=== PATIENT | female | born 1965 | race Caucasian/White ===

== ENCOUNTER → 2016-10-12 | Outpatient (CLI) | payer MEDICARE, OTHER ==
--- NOTE | 2016-10-12 11:00 | MR ---
EXAMINATION TYPE: MR lumbar spine wo con DATE OF EXAM: 10/12/2016 10:30 AM COMPARISON: 01/29/2015 HISTORY: lsp radiculopathy, urinary incontinence, pain and difficulty walking TECHNIQUE: T1 and T2 axial and sagittal images of the lumbar spine are submitted. FINDINGS: There is no abnormal signal seen within the visualized spinal cord or paraspinal soft tissu es. There is loss of disc signal and space at all levels. There is a slight anterolisthesis of 2 mm of L4 on L5. Schmorl's nodes are seen at multiple levels involving the thoracolumbar junction. Benign-appe aring simple renal cysts are also noted. At T12-L1 there is a focal left paracentral small disc herniation. There is effacement of thecal sac but no spinal cord contact. Bilateral nerve root sleeve diverticulum seen. At L1-2 there is left paracentral and lateral disc herniation. There is thecal sac compression and le ft-sided foraminal encroachment. No spinal cord contact. Facet arthropathy noted. Borderline canal st enosis. At L2-3 there is severe degenerative disc disease with disc bulging greater paracentrally and lateral ly the right with mild canal stenosis. Hypertrophic change of the facets and ligamentum flavum contri bute to the canal stenosis. Moderate right foraminal encroachment and mild left foraminal encroachmen t At L3-4 there is circumferential disc bulging with facet arthropathy. There is mild AP canal stenosis and mild bilateral neural foraminal encroachment greater on the right At L4-5 there is broad-based central disc herniation with moderate canal stenosis and effacement of t hecal sac. Could not exclude a small fragment within the left lateral recess. There is severe facet a rthropathy and ligamentum flavum hypertrophy with moderate bilateral foraminal encroachment. At L5-S1 there is severe facet arthropathy but no canal stenosis or disc herniation. Mild bilateral f oraminal encroachment. IMPRESSION: 1. Multilevel disc herniation and canal stenosis appears similar to the previous exam 2. Multilevel foraminal encroachment and facet arthropathy EXAMINATION TYPE: MR tspine/lspine wo con DATE OF EXAM: 10/12/2016 10:30 AM COMPARISON: NONE HISTORY: lsp radiculopathy, urinary incontinence, pain and difficulty walking Standard multiplanar, multisequence MRI departmental protocol Multiplanar, multisequence images of the thoracic were acquired. Diffusion weighted imaging was perfo rmed. FINDINGS: Exam severely limited by motion artifact. There is a scoliosis the spine. Multilevel Schmor l nodes are seen and there is multilevel moderate to severe degenerative disc disease. No acute compr ession deformities. No bone marrow edema. Artifact from surgical hardware involving the lower cervical spine noted. At T2-T3 there is a right paracentral disc bulge or small protrusion. No spinal cord contact. At T3-T4 there is a small central disc herniation which abuts the anterior margin the spinal cord. At T7-T8 there is a right paracentral disc herniation. No spinal cord contact. Neural foramina.. Multilevel facet arthropathy noted. Again noted at T12-L1 is a left paracentral disc herniation and bilateral nerve root sleeve diverticu lum. No spinal cord contact. Simple appearing renal cysts are noted. Hemangioma of the T7 and T10 vertebral bodies. IMPRESSION: 1. Multilevel degenerative disc disease with multilevel disc herniations as discussed above. Most not able at T3-T4 with a central herniation which abuts the anterior margin the spinal cord. No diagnosti c evidence of myelitis. 2. 3 cm left adrenal mass. Appears stable from the CT scan of 2012.
== END | disposition home or self-care (01) ==
LOC: RADMRIMAIN 09:26
PROVIDERS: ATTEND Psychiatry & Neurology Neurology
DX: M54.16 Radiculopathy, lumbar region (principal); R32 Unspecified urinary incontinence; M48.06 Spinal stenosis, lumbar region; M51.24 Other intervertebral disc displacement, thoracic region; M46.90 Unspecified inflammatory spondylopathy, site unspecified
CPT/HCPCS: 72146; 72148

== ENCOUNTER → 2018-06-16 | Outpatient (CLI) | payer MEDICARE, OTHER ==
--- NOTE | 2018-06-16 15:16 | CT ---
EXAMINATION TYPE: CT thoracic spine w con DATE OF EXAM: 06/16/2018 COMPARISON: None HISTORY: Hematoma, recent pain stimulator implant placement CT DLP: 1361.31 mGycm Automated exposure control for dose reduction was used. CONTRAST: Performed with IV Contrast, patient injected with 100 mL of Isovue 300. FINDINGS: Stimulator leads are present within the posterior spinal canal at T8-T10. Upper thoracic spinal canal appears within normal limits. Stimulator leads are in the posterior poste rior left lateral spinal canal. No spinal canal stenosis is present. No suspicious collection is evident. No abnormal enhancement is evident. No suspicious changes to sug gest abscess is evident. There is a 7.3 cm cyst on the lateral inferior pole right kidney measuring 16 Hounsfield units. IMPRESSION: 1. STIMULATOR LEADS AT THE LOWER THORACIC SPINE. 2. NO SUSPICIOUS CHANGES TO SUGGEST ACUTE INFECTION RADIOGRAPHICALLY. 3. LARGE RIGHT INFERIOR POLE RENAL CYST.
--- NOTE | 2018-06-16 15:27 | CT ---
EXAMINATION TYPE: CT lumbar spine w con DATE OF EXAM: 06/16/2018 COMPARISON: None HISTORY: Hematoma, recent pain stimulator implant placement CT DLP: 757.83 mGycm CONTRAST: CT scan of the lumbar is performed with IV Contrast, patient injected with mL of Isovue 300. TECHNIQUE: CT of the lumbar spine is performed on a spiral scan at 3 mm thick sections. Reconstructed images are performed in the coronal and sagittal planes. FINDINGS: No suspicious hematoma or abscess formation is evident. Stimulator leads are evident extend ing into the spinal canal heading superiorly. See CT thoracic spine for additional evaluation. T12-L1: There is narrowing of the disc height. No spinal canal stenosis or neural foraminal stenosis is present. L1-L2: Left paracentral endplate spurring has moderate anterior thecal sac compression. No AP spinal canal stenosis or neural foraminal stenosis is present. L2-L3: There is loss of disc height is level. Vacuum disc phenomenon is present. No AP spinal canal s tenosis or neural foraminal stenosis is present. L3-L4: Broad-based disc bulge is present with anterior thecal sac flattening. No spinal canal stenosi s is present. Some moderate right foraminal narrowing due to disc bulging may be present. L4-L5: There is a grade 1 spondylolisthesis of L4 anterior on L5. There is moderate disc uncovering w ith anterior thecal sac flattening. Facet hypertrophy greater on the right has posterior lateral thec al sac compression. L5-S1: No focal disc herniation or significant disc bulge is evident. No spinal canal stenosis or n eural foraminal stenosis is present IMPRESSION: Left paracentral endplate spurring L1-L2 with moderate anterior thecal sac compression. 2. No suspicious changes for abscess or hematoma identified. 3. Multilevel degenerative disc changes greatest L2-3 also present L1-2
== END ==
LOC: RADCTMAIN 13:29
PROVIDERS: ATTEND Psychiatry & Neurology Neurology
DX: M51.36 Other intervertebral disc degeneration, lumbar region (principal); M54.6 Pain in thoracic spine
CPT/HCPCS: 72129; 72132

== ENCOUNTER 2022-09-30 10:45 | Observation (INO) | payer MEDICARE, OTHER ==
[2022-09-30] MEDS ORDERED: NALOXONE 0.4 MG/ML 1 ML VIAL IV PRN (10:53)
[2022-09-30] MEDS ORDERED: ONDANSETRON 4 MG/2 ML VIAL IVP PRN (10:53)
[2022-09-30] MEDS: MORPHINE SULFATE 2 MG/ML SYRINGE IV PRN ×2 (11:02→20:34)
[2022-09-30] MEDS: SODIUM CHLORIDE 0.9% 1,000 ML IV SCH ×2 (11:03→23:26)
--- NOTE | 2022-09-30 11:08 | ED ---
General Adult HPI - General Chief complaint: Abdominal Pain Stated complaint: Abd Pain Time Seen by Provider: 09/30/22 10:48 Source: patient, EMS, RN notes reviewed, old records reviewed Mode of arrival: EMS Limitations: no limitations - History of Present Illness Initial comments: Patient is a 57-year-old female with past medical history remarkable for fibromyalgia, hypertension, kidney stones who presents emergency Department complaining of right-sided flank pain. Patient was transferred from [facility] after being worked up for kidney stone. They did find a large 8 mm right-sided kidney stone in the ureter that appears to be obstructing as the patient does have hydronephrosis in the right kidney as well as calyx rupture into a chronic renal cyst on the right. No retroperitoneal rupture. Patient's laboratory studies from the outpatient facility revealed relatively normal kidney function with a slight increase in creatinine to 1.2. Urinalysis shows trace blood. No concern for infected stone at this time. CT imaging was obtained to evaluate the patient's stone and was brought here. Above the reuploaded. Patient was transferred for evaluation by urology and possible stent. I did discuss the case Dr. Baptiste prior to transfer and he was in agreement with the transfer. Requested to be notified when the patient arrives. Family states she has some mild pain and is requesting some additional morphine which will be provided. She otherwise has no other new acute complaints. She has been nothing by mouth since the other hospital. We will continue nothing by mouth at this time. - Related Data Home Medications Medication Instructions Recorded Confirmed Loratadine [Claritin] 10 mg PO DAILY 01/13/15 09/30/22 Acetaminophen [Tylenol Extra 1,000 mg PO Q4H PRN 09/30/22 09/30/22 Strength] Albuterol Sulfate [Albuterol 2 puff PO RT-Q6H PRN 09/30/22 09/30/22 Sulfate Hfa] Amberen 2 cap PO DAILY 09/30/22 09/30/22 Baclofen 10 mg PO TID PRN 09/30/22 09/30/22 Cholecalciferol [Vitamin D3 (25 25 mcg PO DAILY 09/30/22 09/30/22 Mcg = 1000 Iu)] Cyanocobalamin (Vitamin B-12) 5,000 mcg PO DAILY 09/30/22 09/30/22 [Vitamin B-12] DULoxetine HCL [Cymbalta] 60 mg PO DAILY 09/30/22 09/30/22 Fluticasone Nasal [place] [Flonase 1 spray EA NOSTRIL BID 09/30/22 09/30/22 Nasal [place]] Losartan [Cozaar] 25 mg PO HS 09/30/22 09/30/22 Rosuvastatin Calcium [Crestor] 40 mg PO HS 09/30/22 09/30/22 amLODIPine [Norvasc] 10 mg PO HS 09/30/22 09/30/22 buPROPion [Wellbutrin] 75 mg PO DAILY 09/30/22 09/30/22 Previous Rx's Medication Instructions Recorded Fesoterodine Fumarate [Toviaz] 4 mg PO DAILY #30 tab 09/30/22 Tamsulosin [Flomax] 0.4 mg PO DAILY #30 cap 09/30/22 Allergies Allergy/AdvReac Type Severity Reaction Status Date / Time hydromorphone [From Dilaudid] AdvReac Vomiting Verified 09/30/22 11:56 Review of Systems ROS Statement: Those systems with pertinent positive or pertinent negative responses have been documented in the HPI. Review of Systems: CONST: Denies fever EYES: Denies blurry vision ENT: Denies nasal congestion C/V: Denies Chest pain RESP: Denies shortness of breath GI: Endorses right flank pain. : Denies dysuria SKIN: Denies rash. MSK: Denies joint pain. NEURO: Denies headache ROS Other: All systems not noted in ROS Statement are negative. Past Medical History Past Medical History: COPD, Fibromyalgia, Hyperlipidemia, Hypertension, Osteoarthritis (OA) Additional Past Medical History / Comment(s): varicose veins, cyst rt kidney, hx kidney stones History of Any Multi-Drug Resistant Organisms: MRSA Date of last positivie culture/infection: 04/05/2022 MDRO Source:: face Past Surgical History: Back Surgery Additional Past Surgical History / Comment(s): essure procedure Past Anesthesia/Blood Transfusion Reactions: No Reported Reaction Past Psychological History: Depression Smoking Status: Current every day smoker Past Alcohol Use History: Rare Past Drug Use History: None Reported - Past Family History Mother Family Medical History: Deep Vein Thrombosis (DVT), Pulmonary Embolus General Exam - General Exam Comments Initial Comments: General: Appears in mild distress secondary to pain. HEAD: Normal with no signs of head trauma. EYES: PERRLA, EOMI, conjunctiva normal, no discharge. ENT: Hearing grossly intact, normal oropharynx. RESPIRATORY: Clear breath sounds bilaterally. No wheezes, rales, or rhonchi. C/V: Regular rate and rhythm. S1 and S2 auscultated, no edema, peripheral pulses 2+ and intact throughout ABD: Abdomen is soft, nondistended. Tender to palpation over the right flank. Minimal CVA tenderness to percussion. No guarding. No peritoneal signs. No rebound tenderness. EXT: Normal range of motion, no obvious deformity SKIN: No rashes or lesions observed on exposed skin. NEURO: Alert and oriented 4. Limitations: no limitations Course Vital Signs 09/30/22 10:56 Temperature 98.6 F Pulse Rate 76 Respiratory 18 Rate Blood Pressure 117/65 O2 Sat by Pulse 95 Oximetry Medical Decision Making - Medical Decision Making Was pt. sent in by a medical professional or institution (, PA, BOILER HOUSE MECHANIC, urgent care, hospital, or fdc...) When possible be specific @ -Transferred from [facility] for urology evaluation over concern for large right-sided obstructing stone with hydronephrosis. Did you speak to anyone other than the patient for history (EMS, parent, family, police, friend...)? What history was obtained from this source @ -Yes, I spoke with the transferring physician Dr. Garsia who provided the patient's history. Did you review nursing and triage notes (agree or disagree)? Why? @ -I reviewed and agree with nursing and triage notes Were old charts reviewed (outside hosp., previous admission, EMS record, old EKG, old radiological studies, urgent care reports/EKG's, fdc records)? Report findings @ -Outside hospital records from [place] were reviewed including CT results. Imaging Disc was uploaded into our system. Differential Diagnosis (chest pain, altered mental status, abdominal pain women, abdominal pain men, vaginal bleeding, weakness, fever, dyspnea, syncope, headache, dizziness, GI bleed, back pain, seizure, CVA, palpatations, mental health, musculoskeletal)? @ -Right-sided hydronephrosis, right sided hilar nephritis, UTI, ureterolithiasis, obstructing kidney stone. This list is not all inclusive. EKG interpreted by me (3pts min.). @ -None done X-rays interpreted by me (1pt min.). @ -None done CT interpreted by me (1pt min.). @ -Imaging uploaded from outside facility. U/S interpreted by me (1pt. min.). @ -None done What testing was considered but not performed or refused? (CT, X-rays, U/S, labs)? Why? @ -None What meds were considered but not given or refused? Why? @ -None Did you discuss the management of the patient with other professionals (professionals i.e. DrAbebe, PA, [employer]ILER HOUSE MECHANIC, lab, RT, psych nurse, professor of social work, press operator automatic, teacher, president and chief commercial officer, nurse case manager)? Give summary @ -Yes, Dr. Veliz of urology who accepted the transfer as well as the admission under his service. Declines additional laboratory studies his lungs the patient has labs. Recommended we uploaded imaging into our system which is being done. Otherwise accepted patient for admission. Patient was made nothing by mouth at his request. Was smoking cessation discussed for >3mins.? @ -No Was critical care preformed (if so, how long)? @ -No Were there social determinants of health that impacted care today? How? (Homelessness, low income, unemployed, alcoholism, drug addiction, transportation, low edu. Level, literacy, decrease access to med. care, residential, rehab)? @ -No Was there de-escalation of care discussed even if they declined (Discuss DNR or withdrawal of care, Hospice)? DNR status @ -No What co-morbidities impacted this encounter? (DM, HTN, Smoking, COPD, CAD, Cancer, CVA, ARF, Chemo, Hep., AIDS, mental health diagnosis, sleep apnea, morbid obesity)? @ -None Was patient admitted / discharged? Hospital course, mention meds given and route, prescriptions, significant lab abnormalities, going to OR and other pertinent info. @ -Based on the patient's presentation and physical exam, she is transferred here for treatment for a 8 mm right ureter stone imaging and workup has already been completed. Presenting for urology evaluation and likely stent placement. She is nothing by mouth. Vital signs within acceptable limits. She'll be started on IV maintenance fluids as well as IV morphine for analgesia. She was in agreement this plan. I spoke with Dr. Veliz he does not require additional laboratory studies. Labs were placed on the patient's chart. Packet from outside facility was placed on the patient's chart. CT imaging is uploaded to our system. She'll be admitted to the hospital for evaluation and management of the stone under Dr. Veliz. Undiagnosed new problem with uncertain prognosis? @ -No Drug Therapy requiring intensive monitoring for toxicity (Heparin, Nitro, Insulin, Cardizem)? @ -No Were any procedures done? @ -No Diagnosis/symptom? @ -Right-sided obstructive ureteral lithiasis Acute, or Chronic, or Acute on Chronic? @ -Acute Uncomplicated (without systemic symptoms) or Complicated (systemic symptoms)? @ -Complicated Side effects of treatment? @ -No Exacerbation, Progression, or Severe Exacerbation? @ -No Poses a threat to life or bodily function? How? (Chest pain, [place], [place], pneumonia, PE, COPD, DKA, ARF, appy, cholecystitis, CVA, Diverticulitis, Homicidal, Suicidal, threat to staff... and all critical care pts) @ -Yes, if untreated can result in significant morbidity and mortality. Disposition Clinical Impression: Ureterolithiasis, Hydronephrosis, Flank pain Disposition: ADMITTED IP TO THIS HOSP Condition: Stable Time of Disposition: 10:53
--- NOTE | 2022-09-30 13:14 | P.GSHP ---
History of Present Illness H&P Date: 09/30/22 Chief Complaint: Right flank pain, nausea The patient is a 57-year-old white female who passed a left-sided calculus in 2011. She presents with a three-day history of right lower back pain radiating to the right upper quadrant, which became severe yesterday. She has experienced associated nausea and vomiting, as well as a feeling of abdominal bloating. She was evaluated at [facility] and subsequently referred to [facility] for further management. - Constitutional Constitutional: Reports chills, Reports chronic headaches, Denies fever - Cardiovascular Cardiovascular: Denies palpitations - Gastrointestinal Gastrointestinal: Reports nausea, Reports vomiting - Genitourinary (Female) Genitourinary: Reports flank pain, Reports kidney stones, Denies dysuria, Denies hematuria Past Medical History Past Medical History: COPD, Fibromyalgia, Hyperlipidemia, Hypertension, Osteoarthritis (OA) Additional Past Medical History / Comment(s): varicose veins, cyst rt kidney, hx kidney stones History of Any Multi-Drug Resistant Organisms: MRSA Date of last positivie culture/infection: 04/05/2022 MDRO Source:: face Past Surgical History: Back Surgery Additional Past Surgical History / Comment(s): essure procedure Past Anesthesia/Blood Transfusion Reactions: No Reported Reaction Past Psychological History: Depression Smoking Status: Current every day smoker Past Alcohol Use History: Rare Past Drug Use History: None Reported - Past Family History Mother Family Medical History: Deep Vein Thrombosis (DVT), Pulmonary Embolus Medications and Allergies Home Medications Medication Instructions Recorded Confirmed Type Loratadine [Claritin] 10 mg PO DAILY 01/13/15 09/30/22 History Acetaminophen [Tylenol Extra 1,000 mg PO Q4H PRN 09/30/22 09/30/22 History Strength] Albuterol Sulfate [Albuterol 2 puff PO RT-Q6H PRN 09/30/22 09/30/22 History Sulfate Hfa] Amberen 2 cap PO DAILY 09/30/22 09/30/22 History Baclofen 10 mg PO TID PRN 09/30/22 09/30/22 History Cholecalciferol [Vitamin D3 (25 25 mcg PO DAILY 09/30/22 09/30/22 History Mcg = 1000 Iu)] Cyanocobalamin (Vitamin B-12) 5,000 mcg PO DAILY 09/30/22 09/30/22 History [Vitamin B-12] DULoxetine HCL [Cymbalta] 60 mg PO DAILY 09/30/22 09/30/22 History Fluticasone Nasal [place] [Flonase 1 spray EA NOSTRIL BID 09/30/22 09/30/22 History Nasal [place]] Losartan [Cozaar] 25 mg PO HS 09/30/22 09/30/22 History Rosuvastatin Calcium [Crestor] 40 mg PO HS 09/30/22 09/30/22 History amLODIPine [Norvasc] 10 mg PO HS 09/30/22 09/30/22 History buPROPion [Wellbutrin] 75 mg PO DAILY 09/30/22 09/30/22 History Allergies Allergy/AdvReac Type Severity Reaction Status Date / Time hydromorphone [From Dilaudid] AdvReac Vomiting Verified 09/30/22 11:56 Surgical - Exam Vital Signs Temp Pulse Resp BP Pulse Ox 98.6 F 76 18 117/65 95 09/30/22 10:56 09/30/22 10:56 09/30/22 10:56 09/30/22 10:56 09/30/22 10:56 - General well developed, well nourished, moderate distress - Neck no masses, trachea midline - Respiratory normal respiratory effort - Abdomen Soft, non-distended. Mild right upper quadrant tenderness, no guarding or rebound. No mass. - Psychiatric oriented to time, oriented to person, oriented to place, speech is normal, memory intact Results - Imaging CT scan - abdomen: report reviewed, image reviewed Additional studies: WBC equals 9.1 Creatinine equals 1.2 Calcium equals 8.9 Urinalysis shows trace blood, no evidence of infection CT scan of the abdomen and pelvis with contrast shows mild right hydronephrosis due to an 8 mm right proximal ureteral calculus. The patient has a known large right renal cyst identified on ultrasound in November 2015. The CT scan shows evidence of contrast extravasation into the cyst/urinoma, which measures 11.5 x 7.4 x 10.5 cm. Also seen is a 4 cm low-attenuation lesion within the left adrenal gland with relative washout of 79.5%, consistent with adenoma. 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 She has an obstructing right proximal ureteral calculus resulting in a forniceal rupture and perinephric urinoma. The fact that she has a known large right renal cyst suggests that the extravasation of urine is actually into the cyst. The left adrenal lesion is likely a an adenoma, and I explained to her that the risk of malignancy increases significantly if the lesion reaches a size of 6 cm. For now, I have suggested she undergo cystoscopy, right retrograde pyelogram, right ureteral stent insertion to relieve the ureteral obstruction and allow the forniceal rupture to heal. Arrangements would then be made for her to undergo elective ureteroscopic removal of the calculus in several weeks. Once she has fully recovered, I will recommend that she undergo a metabolic evaluation to confirm that the left adrenal adenoma is indeed nonfunctional. I made her aware of potential risks associated with stent placement and ureteroscopy, which include anesthesia, bleeding, infection, ureteral injury, and inability to successfully place a stent. Time with Patient: Greater than 30
[2022-09-30] MEDS ORDERED: DEXAMETHASONE SOD PHOSPHATE 4 MG/ML 1 ML VIAL IV ONE (13:52)
[2022-09-30] MEDS ORDERED: LACTATED RINGERS 1,000 ML IV SCH (14:00)
[2022-09-30] MEDS ORDERED: DEXAMETHASONE SOD PHOS (MDV) 100 MG/10 ML VIAL ONE (14:06)
[2022-09-30] MEDS ORDERED: fentaNYL (PF) 50 MCG/ML 2 ML AMP ONE (14:06)
[2022-09-30] MEDS ORDERED: ePHEDrine 50 MG/ML 1 ML VIAL ONE (14:06)
[2022-09-30] MEDS ORDERED: PROPOFOL 10 MG/ML 20 ML VIAL IV ONE (14:06)
[2022-09-30] MEDS ORDERED: PHENYLEPHRINE-0.9% NACL SYG 1,000 MCG/10 ML SYRINGE ONE (14:06)
[2022-09-30] MEDS ORDERED: ONDANSETRON 4 MG/2 ML VIAL ONE (14:06)
[2022-09-30] MEDS ORDERED: LIDOCAINE 2% INJ 20 MG/ML (2 ML VIAL) ONE (14:06)
[2022-09-30] MEDS ORDERED: LACTATED RINGERS 1,000 ML IV ONE (14:07)
[2022-09-30] MEDS ORDERED: IOPAMIDOL-370 100ML BTL MISCELLANE ONE (14:32)
--- NOTE | 2022-09-30 15:09 | P.OP ---
Date of Procedure: 09/30/22 Preoperative Diagnosis: Right hydronephrosis secondary to right ureteral calculus Postoperative Diagnosis: Same Procedure(s) Performed: Cystoscopy, right retrograde pyelogram, right ureteral stent insertion Anesthesia: HIMANSHUA Surgeon: Akash Veliz Estimated Blood Loss (ml): 0 IV fluids (ml): 350 Pathology: none sent Condition: stable Disposition: PACU Indications for Procedure: The patient is a 57-year-old white female admitted with right flank pain. CT scan shows mild right hydronephrosis due to an 8 mm right proximal ureteral calculus. A forniceal rupture is noted, with extravasation of contrast into a known right renal cyst. Operative Findings: Obstructing right proximal ureteral calculus, not seen on fluoroscopy. Description of Procedure: The patient was taken to the operating room and placed in the dorsolithotomy position, with legs supported in Robert stirrups. The external genitalia was prepped and draped sterilely. The 30 lens was used to introduce the 22-Finnish Stortz cystoscopic sheath through the urethra and into the bladder under direct vision. The bladder was examined in its entirety. Both ureteral orifices were of normal anatomic location and configuration, and clear urine effluxed from both. No tumors or foreign bodies were seen. The patient is noted to have a cystocele. Using a 10-Finnish cone-tipped catheter, a right retrograde pyelogram was performed. The distal two thirds of the ureter were normal in course and caliber. It was difficult to clearly visualize the right proximal ureter. Contrast did pass into a mildly dilated right renal pelvis. An angle-tip 0.035 inch Glidewire was passed through the cystoscope. The right ureteral orifice was cannulated, and the Glidewire was slowly advanced up to the renal pelvis. A 22 cm, 6-Finnish double-J ureteral stent was placed over the wire. The proximal end of the stent curled right at the ureteral pelvic junction, and therefore it was exchanged for a 24 cm, 6-Finnish double-J ureteral stent which curled comfortably within the right renal pelvis. The distal end of the stent was seen to curl within the bladder. The bladder was emptied and the cystoscope removed. The patient tolerated the procedure well was taken to the recovery room in stable condition.
[2022-09-30] MEDS: HEPARIN SODIUM,PORCINE/PF 5,000 UNIT/0.5 ML SYRINGE SQ SCH ×2 (16:37→23:28)
--- NOTE | 2022-10-01 06:12 | FL ---
EXAMINATION TYPE: FL guidance operating room DATE OF EXAM: 09/30/2022 CLINICAL HISTORY: Right-sided kidney stone. TECHNIQUE: Fluoroscopy. COMPARISON: Outside CT abdomen and pelvis earlier in day. FINDINGS: Fluoroscopic guidance was provided during right ureter stent insertion procedure performed by Dr. Veliz. A total of 1 minute 34 seconds of fluoroscopic time was utilized during the procedur e and 9 spot images are acquired. Images acquired show ureter access and subsequent placement of uret er stent. IMPRESSION: As Above. Total DAP 23.946 gy x cm2
[2022-10-01] MEDS ORDERED: MORPHINE SULFATE 4 MG/ML SYRINGE IV PRN (07:00)
[2022-10-01 08:06] VITALS: BP 121/72; PULSE 74; RESP 18; TEMP 98.2
[2022-10-01] MEDS: HEPARIN SODIUM,PORCINE/PF 5,000 UNIT/0.5 ML SYRINGE SQ SCH ×2 (09:08→16:39)
[2022-10-01 09:37] LABS: Basophils # (A) 0.02 X 10*3/uL (0.00-0.10); Basophils % (A) 0.2 %; Eosinophils # (A) 0 X 10*3/uL (0.04-0.35); Eosinophils % (A) 0 %; HCT 37.2 % (37.2-46.3); HGB 11.6 g/dL (12.0-15.0); Immature Grans, Automated 0.5 %; Lymphocytes # (A) 0.82 X 10*3/uL (0.90-5.00); Lymphocytes % (A) 7.8 %; MCH 29.6 pg (27.0-32.0); MCHC 31.2 g/dL (32.0-37.0); MCV 94.9 fL (80.0-97.0); Mean Platelet Volume 9.5 fL (9.5-12.2); Monocytes % (A) 4.8 %; NRBC Per 100 WBC 0 /100 WBCS (0.0-0.0); Neutrophils # (A) 9.06 X 10*3/uL (1.80-7.70); Neutrophils % (A) 86.7 %; Platelet Count 250 X 10*3/uL (140-440); RBC 3.92 X 10*6/uL (4.10-5.20); RDW 13.5 % (11.5-14.5); WBC 10.45 X 10*3/uL (4.50-10.00)
[2022-10-01 09:43] LABS: African American GFR (CKD) 43.7 (60.0-200.0); Anion Gap 8.2 mmol/L (10.00-18.00); BUN/Creat Ratio 14.33 Ratio (12.00-20.00); Blood Urea Nitrogen 21.5 mg/dL (9.0-27.0); Calcium 9.2 mg/dL (8.7-10.3); Carbon Dioxide 24.8 mmol/L (20.0-27.5); Non-African American GFR(CKD) 37.7 (60.0-200.0); Potassium 4.8 mmol/L (3.5-5.5)
--- NOTE | 2022-10-01 10:32 | P.DS ---
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 She presents with a three-day history of right lower back pain radiating to the right upper quadrant, which became severe. She has experienced associated nausea and vomiting, as well as a feeling of abdominal bloating. She was evaluated at [facility] and subsequently referred to [facility] for further management. Urinalysis shows trace blood, no evidence of infection. CT scan of the abdomen and pelvis with contrast shows mild right hydronephrosis due to an 8 mm right proximal ureteral calculus. The patient has a known large right renal cyst identified on ultrasound in November 2015. The CT scan shows evidence of contrast extravasation into the cyst/urinoma, which measures 11.5 x 7.4 x 10.5 cm. Also seen is a 4 cm low-attenuation lesion within the left adrenal gland with relative washout of 79.5%. The left adrenal lesion is likely a an adenoma, and I explained to her that the risk of malignancy increases significantly if the lesion reaches a size of 6 cm. on 09/30/22 the patient underwent a cystoscopy, right retrograde pyelogram, right ureteral stent insertion to relieve the ureteral obstruction and allow the forniceal rupture to heal. Arrangements would then be made for her to undergo elective ureteroscopic removal of the calculus in several weeks. Once she has fully recovered, I will recommend that she undergo a metabolic evaluation to confirm that the left adrenal adenoma is indeed nonfunctional. POD #1 the patient is tolerating a diet and denies any nausea or vomiting. She still is experiencing some right upper quadrant pain, but states her pain has improved significantly. The patient is voiding without difficulty and denies any hematuria. She is afebrile and her vital signs are stable. He is doing discharged home today. A prescription for Toradol was sent to her pharmacy. Impression and plan of care have been directed as dictated by the signing physician. Olamide Gonzalez nurse practitioner acting as scribe for signing physician. Olamide Gonzalez [facility] Palliative Care/Urology Spectralink [id number] Email: [email or web address] I personally performed and participated in the history, physical, the decision making, I agree with the assessment and plan of [employer] CASE MANAGER Patient Condition at Discharge: Good Plan - Discharge Summary Discharge Rx Participant: No New Discharge Prescriptions: New Tamsulosin [Flomax] 0.4 mg PO DAILY #30 cap Fesoterodine Fumarate [Toviaz] 4 mg PO DAILY #30 tab Ketorolac [Toradol] 10 mg PO Q6HR PRN #10 tab PRN Reason: Pain Continue Loratadine [Claritin] 10 mg PO DAILY Losartan [Cozaar] 25 mg PO HS Fluticasone Nasal [place] [Flonase Nasal [place]] 1 spray EA NOSTRIL BID DULoxetine HCL [Cymbalta] 60 mg PO DAILY buPROPion [Wellbutrin] 75 mg PO DAILY amLODIPine [Norvasc] 10 mg PO HS Amberen 2 cap PO DAILY Cholecalciferol [Vitamin D3 (25 Mcg = 1000 Iu)] 25 mcg PO DAILY Albuterol Sulfate [Albuterol Sulfate Hfa] 2 puff PO RT-Q6H PRN PRN Reason: Shortness Of Breath Acetaminophen [Tylenol Extra Strength] 1,000 mg PO Q4H PRN PRN Reason: Fever And/ Or Pain Cyanocobalamin (Vitamin B-12) [Vitamin B-12] 5,000 mcg PO DAILY Rosuvastatin Calcium [Crestor] 40 mg PO HS Baclofen 10 mg PO TID PRN PRN Reason: Pain Discharge Medication List Loratadine [Claritin] 10 mg PO DAILY 01/13/15 [History] Acetaminophen [Tylenol Extra Strength] 1,000 mg PO Q4H PRN 09/30/22 [History] Albuterol Sulfate [Albuterol Sulfate Hfa] 2 puff PO RT-Q6H PRN 09/30/22 [History] Amberen 2 cap PO DAILY 09/30/22 [History] Baclofen 10 mg PO TID PRN 09/30/22 [History] Cholecalciferol [Vitamin D3 (25 Mcg = 1000 Iu)] 25 mcg PO DAILY 09/30/22 [History] Cyanocobalamin (Vitamin B-12) [Vitamin B-12] 5,000 mcg PO DAILY 09/30/22 [History] DULoxetine HCL [Cymbalta] 60 mg PO DAILY 09/30/22 [History] Fesoterodine Fumarate [Toviaz] 4 mg PO DAILY #30 tab 09/30/22 [Rx] Fluticasone Nasal [place] [Flonase Nasal [place]] 1 spray EA NOSTRIL BID 09/30/22 [History] Losartan [Cozaar] 25 mg PO HS 09/30/22 [History] Rosuvastatin Calcium [Crestor] 40 mg PO HS 09/30/22 [History] Tamsulosin [Flomax] 0.4 mg PO DAILY #30 cap 09/30/22 [Rx] amLODIPine [Norvasc] 10 mg PO HS 09/30/22 [History] buPROPion [Wellbutrin] 75 mg PO DAILY 09/30/22 [History] Ketorolac [Toradol] 10 mg PO Q6HR PRN #10 tab 10/01/22 [Rx] Follow up Appointment(s)/Referral(s): Hussein Wright MD [Primary Care Provider] - 10/03/22 7:00 am (Please bring discharge paperwork.) Patient Instructions/Handouts: Hydronephrosis (DC), Ureteral Stones (DC) Activity/Diet/Wound Care/Special Instructions: - Activity as tolerated - Take pain medication as prescribed for discomfort - It is normal to have blood in your urine - Increase your fluid intake - Arrangements will be made for you to undergo removal of the stone in several weeks Discharge Disposition: HOME SELF-CARE
[2022-10-01] MEDS: SODIUM CHLORIDE 0.9% 1,000 ML IV SCH (10:56)
== END 2022-10-01 17:03 | disposition home or self-care (01) ==
LOC: SUPCPDRO 10:45 → EC 10:45 → INTOOBSV 10:53 → 5NMEDONC 10:53 → 4SSUR 11:42 → UNDODISIN 10-01 17:03
PROVIDERS: ADMIT Urology; ATTEND Urology
DX: N13.2 Hydronephrosis with renal and ureteral calculous obstruction (principal); I10 Essential (primary) hypertension; M79.7 Fibromyalgia; D35.02 Benign neoplasm of left adrenal gland; N28.1 Cyst of kidney, acquired; J44.9 Chronic obstructive pulmonary disease, unspecified; E78.5 Hyperlipidemia, unspecified; F32.A Depression, unspecified; F17.200 Nicotine dependence, unspecified, uncomplicated; Z79.899 Other long term (current) drug therapy; Z83.2 Family history of diseases of the blood and blood-forming organs and certain disorders involving the immune mechanism
CPT/HCPCS: 96376; 96372 ×2; 96375; 96374; 99285; 80048; 85025; 52332; 74420; G0378 ×2; C2625; C1769 ×2; C1758 ×2; J0690; J2405; J3010; J2270; J1100; J2370; J2704; Q9967; J1644 ×2; J2001; 96361

== ENCOUNTER → 2022-10-18 | Outpatient (CLI) | payer MEDICARE, OTHER ==
[2022-10-18 18:11] LABS: Basophils # (A) 0.08 X 10*3/uL (0.00-0.10); Basophils % (A) 1.1 %; Eosinophils # (A) 0.17 X 10*3/uL (0.04-0.35); Eosinophils % (A) 2.4 %; HCT 37.3 % (37.2-46.3); HGB 11.5 g/dL (12.0-15.0); Immature Grans, Automated 0.4 %; Lymphocytes # (A) 1.56 X 10*3/uL (0.90-5.00); Lymphocytes % (A) 21.6 %; MCH 28.6 pg (27.0-32.0); MCHC 30.8 g/dL (32.0-37.0); MCV 92.8 fL (80.0-97.0); Mean Platelet Volume 8.9 fL (9.5-12.2); Monocytes # (A) 0.74 X 10*3/uL (0.20-1.00); Monocytes % (A) 10.2 %; NRBC Per 100 WBC 0 /100 WBCS (0.0-0.0); Neutrophils # (A) 4.64 X 10*3/uL (1.80-7.70); Neutrophils % (A) 64.3 %; Platelet Count 345 X 10*3/uL (140-440); RBC 4.02 X 10*6/uL (4.10-5.20); RDW 13.2 % (11.5-14.5); WBC 7.22 X 10*3/uL (4.50-10.00)
[2022-10-18 18:19] LABS: African American GFR (CKD) 71.4 (60.0-200.0); Anion Gap 10.9 mmol/L (10.00-18.00); BUN/Creat Ratio 14.3 Ratio (12.00-20.00); Blood Urea Nitrogen 14.3 mg/dL (9.0-27.0); Calcium 9.3 mg/dL (8.7-10.3); Carbon Dioxide 24.1 mmol/L (20.0-27.5); Non-African American GFR(CKD) 61.6 (60.0-200.0); Potassium 4.1 mmol/L (3.5-5.5)
== END | disposition home or self-care (01) ==
LOC: LABWHC1 13:31
PROVIDERS: ATTEND Urology
DX: Z01.812 Encounter for preprocedural laboratory examination (principal); N20.1 Calculus of ureter
CPT/HCPCS: 36415; 80048; 85025